=== PATIENT | female | born 1955 | race Hispanic/Latino ===

== ENCOUNTER → 2016-10-15 | Outpatient (CLI) | payer BC ==
--- NOTE | 2016-10-16 15:42 | MAM ---
EXAM DESCRIPTION: MAMMO BREAST SCREENING BILATERAL CAD, images were reviewed with CAD technology, R2 computer-aided detection. CLINICAL HISTORY: [facility]. COMPARISON: 2013. FINDINGS: Routine views are obtained. Scattered glandular pattern with increased mammographic density and stable distribution. No dominant mass, architectural distortion or clustered microcalcification.. IMPRESSION: Benign exam. BIRAD CATEGORY: 2 BENIGN RECOMMENDATIONS: FOLLOW-UP: Routine screening mammogram in one year. According to the [employer], yearly mammograms are recommended starting at age 40 and continuing as long as a woman is in good health. Any breast change noted on a breast self-exam should be reported promptly to the patient's healthcare provider. Breast MRI is recommended for women with an approximately 20-25% or greater lifetime risk of breast cancer, including women with a strong family history of breast or ovarian cancer and women who have been treated for Hodgkin's disease. Electronically signed by: Argenis Adams 10/16/2016 15:40
== END | disposition home or self-care (01) ==
LOC: MAMMO 12:47
PROVIDERS: ATTEND Family Medicine
DX: Z12.31 Encounter for screening mammogram for malignant neoplasm of breast (principal)

== ENCOUNTER → 2017-06-08 | Outpatient (CLI) | payer BC | END | disposition home or self-care (01) | LOC: GMAB 19:26 | PROVIDERS: ATTEND Physician Assistant | DX: N39.0 Urinary tract infection, site not specified (principal) ==

== ENCOUNTER → 2018-01-07 | Outpatient (CLI) | payer BC, OTHER ==
--- NOTE | 2018-01-11 14:47 | MAM ---
EXAM DESCRIPTION: 3D Screening BILATERAL : Digital Mammography. CLINICAL HISTORY: 62 years Female SCREENING . No complaints. Sister with breast cancer. Postmenopausal. No HRT. COMPARISON: 2-D digital screening bilateral study 10/15/2016.. Report from prior examination also reviewed. TECHNIQUE: Bilateral CC and MLO projection full-field images, 3-D tomosynthesis digital mammographic technique. Also bilateral synthesized CC/ MLO full-field images. CAD not utilized. FINDINGS: The breast parenchymal density pattern is: Scattered areas of fibroglandular density. No skin thickening or nipple retraction bilateral axillary lymph nodes. Bilateral solitary microcalcifications. No focal, stellate mass or density, focal asymmetry , and no suspicious microcalcifications bilaterally. Stable mammograms compared to prior study, taking into account differences in mammographic technique IMPRESSION: BI-RADS CATEGORY: 2 - BENIGN FINDINGS. FOLLOW UP: Routine digital bilateral screening, one year interval from January 2018. Written communication explaining the IMPRESSION and follow-up, will be mailed to the patient and referring health care provider. According to the [employer], yearly mammograms are recommended starting at age 40 and continuing as long as a woman is in good health. Any breast change noted on a breast self-exam should be reported promptly to the patient's healthcare provider. Breast MRI is recommended for women with an approximately 20-25% or greater lifetime risk of breast cancer, including women with a strong family history of breast or ovarian cancer and women who have been treated for Hodgkin's disease. A negative mammographic report should not delay tissue diagnosis in patients with significant clinical history or physical findings. Extremely dense breast tissue limits the sensitivity of digital mammography. Electronically signed by: Sean Tafoya MD 01/11/2018 2:45 PM CDT
== END ==
LOC: MAMMO 12:57
PROVIDERS: ATTEND Family Medicine
DX: Z12.31 Encounter for screening mammogram for malignant neoplasm of breast (principal)

== ENCOUNTER → 2018-08-26 | Outpatient (CLI) | payer OTHER | LOC: GMAE 15:38 | PROVIDERS: ATTEND Family Medicine | DX: R41.9 Unspecified symptoms and signs involving cognitive functions and awareness (principal); R41.81 Age-related cognitive decline ==

== ENCOUNTER → 2018-09-14 | Outpatient (CLI) | payer OTHER ==
--- NOTE | 2018-09-14 14:18 | CT ---
EXAM DESCRIPTION: Head CLINICAL HISTORY: 91252 /R41.9 memory loss COMPARISON: None available TECHNIQUE: Noncontrast head CT was performed with routine protocol. FINDINGS: Normal rivera-white matter differentiation. Ventricles and sulci are normal for age. No high density hemorrhage, focal edema or shift of the midline. No sulcal effacement. Normal orbital contents. Basilar cisterns appear clear. Intact calvarium with no fracture or lytic lesion. Normal aeration of tympanic cavities and mastoid air cells. No fluid levels in the paranasal sinuses. Skull base appears intact. Symmetrical internal auditory canals. IMPRESSION: No acute intracranial pathologic process. This exam was performed according to our departmental dose-optimization program, which includes automated exposure control, adjustment of the mA and/or kV according to patient size and/or use of iterative reconstruction technique. Total DLP equals 752.48 mGycm. Electronically signed by: Marcus Avendaño MD 09/14/2018 2:17 PM [facility]
== END ==
LOC: CT 13:24
PROVIDERS: ATTEND Family Medicine
DX: R41.81 Age-related cognitive decline (principal); R41.9 Unspecified symptoms and signs involving cognitive functions and awareness

== ENCOUNTER → 2018-12-21 | Outpatient (CLI) | payer OTHER | LOC: GMAE 10:33 | PROVIDERS: ATTEND Family Medicine | DX: E53.8 Deficiency of other specified B group vitamins (principal) ==

== ENCOUNTER 2018-12-24 21:20 | Emergency (ER) | payer OTHER ==
[2018-12-24] MEDS ORDERED: ALUMINUM & MAGNESIUM HYDROXIDE 30 ML UD PO ONE (21:43)
[2018-12-24] MEDS ORDERED: ONDANSETRON ODT 8 MG TAB SL ONE (21:43)
[2018-12-24] MEDS ORDERED: SIMETHICONE 80 MG TAB PO ONE (23:35)
--- NOTE | 2018-12-25 00:30 | ED.PDOC ---
History of Present Illness - General Chief Complaint: Abdominal Pain Stated Complaint: abd pain, N/V/D Time Seen by Provider: 12/24/18 21:21 Source: patient, family Exam Limitations: clinical condition - History of Present Illness Initial Comments: The patient is a [id number] presenting to the emergency room secondary to upper abdominal cramping along with some belching and nausea and vomiting for the last 24 hours. It has been intermittent. No fever. No real point pain. No blood and no bile. She has been having bowel movements. No severe pain. She did recently start a new medication for memory loss. No syncope or near syncope. No chest pain. Timing/Duration: 24 hours Severity: moderate Improving Factors: nothing Worsening Factors: nothing Associated Symptoms: loss of appetite, malaise, nausea/vomiting Home Medications: Ambulatory Orders Famotidine [Pepcid Tab] 20 mg PO BID #60 tab 12/25/18 Ondansetron [Ondansetron Odt] 4 mg PO Q8HR PRN #10 tab 12/25/18 Sucralfate Tab [Carafate Tab] 1 gm PO QID #120 tab 12/25/18 Review of Systems - Review of Systems Constitutional: States: malaise EENTM: States: no symptoms reported Respiratory: States: no symptoms reported Cardiology: States: no symptoms reported Gastrointestinal/Abdominal: States: abdominal pain - mild, nausea, vomiting Genitourinary: States: no symptoms reported Musculoskeletal: States: no symptoms reported Skin: States: no symptoms reported Neurological: States: no symptoms reported Endocrine: States: no symptoms reported All other Systems: No Change from Baseline Physical Exam - Physical Exam General Appearance: Alert, Comfortable, No apparent distress Eye Exam: bilateral normal Ears, Nose, Throat: hearing grossly normal, normal ENT inspection Neck: full range of motion, supple Respiratory: lungs clear, normal breath sounds, no respiratory distress, no accessory muscle use Cardiovascular/Chest: normal peripheral pulses, regular rate, rhythm, no edema Peripheral Pulses: radial,right: 2+, radial,left: 2+, dorsalis pedis,right: 2+, dorsalis pedis,left: 2+ Gastrointestinal/Abdominal: soft, other - mild epigastric discomfort palpation. 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 The patient has responded well to GI medications here. She will be written for Zofran for as needed use to control any nausea or vomiting. She is also going to be written for Pepcid and Carafate to be used for the next month. 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 She needs to maintain a bland diet. She needs to keep herself well hydrated. She needs to follow back up with her primary care doctor early next week. For now she is to hold the new medication that she started a few days ago as it may be irritating the problem. ER warnings were given. - Results/Orders Results/Orders: Laboratory Tests 12/24/18 23:37 Urine Color Yellow Urine Appearance Clear Urine pH 7.5 Ur Specific [place] 1.015 Urine Protein Negative Urine Glucose (UA) Negative Urine Ketones Negative Urine Blood Small H Urine Nitrite Negative Urine Bilirubin Negative Urine Urobilinogen 0.2 Ur Leukocyte Esterase Trace H Urine RBC 3-5 H Urine WBC 1-3 Ur Epithelial Cells 0 Urine Bacteria Rare acute abdominal series shows a moderate amount of stool and a mildly dilated stomach. No free air. No obvious obstruction. Departure - Departure Clinical Impression: Gastritis Qualifiers: Gastritis type: unspecified gastritis Chronicity: acute Gastritis bleeding: without bleeding Qualified Code(s): K29.00 - Acute gastritis without bleeding Disposition: Discharge to Home or Self Care Condition: Fair Departure Forms: ED Discharge - Pt. Copy, Patient Portal Self Enrollment Instructions: Gastritis (DC) Diet: bland diet Activity: increase activity as tolerated Referrals: KHADRA AMOR MD [Primary Care Provider] - 1-2 Weeks Prescriptions: Ondansetron [Ondansetron Odt] 4 mg PO Q8HR PRN #10 tab PRN Reason: Nausea/Vomiting Famotidine [Pepcid Tab] 20 mg PO BID #60 tab Sucralfate Tab [Carafate Tab] 1 gm PO QID #120 tab Home Medications: Ambulatory Orders Famotidine [Pepcid Tab] 20 mg PO BID #60 tab 12/25/18 Ondansetron [Ondansetron Odt] 4 mg PO Q8HR PRN #10 tab 12/25/18 Sucralfate Tab [Carafate Tab] 1 gm PO QID #120 tab 12/25/18 Additional Instructions: the patient is a 63-year-old female presenting to emergency room secondary to what appears to be a gastritis with mild nausea and vomiting. The patient has responded well to GI medications here. She will be written for Zofran for as needed use to control any nausea or vomiting. She is also going to be written for Pepcid and Carafate to be used for the next month. 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 She needs to maintain a bland diet. She needs to keep herself well hydrated. She needs to follow back up with her primary care doctor early next week. For now she is to hold the new medication that she started a few days ago as it may be irritating the problem. ER warnings were given.
[2018-12-25 01:21] VITALS: BP 155/75; TEMP 97.9; O2SAT 98
== END 2018-12-25 01:20 | disposition home or self-care (01) ==
LOC: ER 21:20
DX: K29.00 Acute gastritis without bleeding (principal)

== ENCOUNTER → 2020-08-17 | Outpatient (CLI) | payer MEDICARE | LOC: GMAE 10:41 | PROVIDERS: ATTEND Family Medicine | DX: Z79.899 Other long term (current) drug therapy (principal); E78.2 Mixed hyperlipidemia ==

== ENCOUNTER → 2020-08-24 | Outpatient (CLI) | payer MEDICARE | LOC: GMAE 10:56 | PROVIDERS: ATTEND Family Medicine | DX: R41.9 Unspecified symptoms and signs involving cognitive functions and awareness (principal) ==

== ENCOUNTER → 2020-10-29 | Outpatient (CLI) | payer MEDICARE ==
--- NOTE | 2020-10-29 16:38 | US ---
PROVIDED CLINICAL HISTORY/REASON FOR EXAM: ABD PAIN COMPARISON STUDY: None available. TECHNIQUE: Grayscale and limited doppler examination of the abdomen was obtained. FINDINGS: Pancreas: Obscured by bowel gas. Liver: Parenchymal morphology is unremarkable. No intrahepatic masses are identified. No significant intrahepatic biliary system dilatation. Right hepatic lobe cyst measuring 1.6 cm. CBD: Measures 6 mm. Within normal limits for age. Gallbladder: Normal with no stones or wall thickening. Kidneys: Both are normal in size and shape. The right kidney measures 10.0 x 3.9 x 4.9 cm. The left kidney measures 9.4 x 5.1 x 5.1cm. No suspicious masses are seen. No hydronephrosis noted. Spleen: Normal sonographic appearance. The spleen measures 9.9 cm in length. Retroperitoneal structures: IVC is unremarkable in appearance. Aorta is without evidence of aneurysm formation. IMPRESSION: Unremarkable abdominal ultrasound. Electronically signed by: Abdulkadir Joshi MD 10/29/2020 4:37 PM DIRECTOR [employer]
== END ==
LOC: LAB.O 15:59
PROVIDERS: ATTEND Nurse Practitioner Acute Care
DX: R10.84 Generalized abdominal pain (principal)

== ENCOUNTER 2020-10-30 10:12 | Emergency (ER) | payer MEDICARE ==
[2020-10-30] MEDS ORDERED: SODIUM CHLORIDE 0.9% (FLUSH) 10 ML SYG IV PRN (10:34)
[2020-10-30] MEDS ORDERED: KETOROLAC TROMETHAMINE INJ 30 MG/ML VIAL IV ONE (10:34)
[2020-10-30] MEDS ORDERED: SODIUM CHLORIDE 0.9% 1000ML 1,000 ML IVS PRN (10:34)
--- NOTE | 2020-10-30 11:14 | ED.PDOC ---
History of Present Illness - General Chief Complaint: Abdominal Pain Stated Complaint: lower abdominal pain Time Seen by Provider: 10/30/20 10:33 Information Source: patient Exam Limitations: no limitations - History of Present Illness Abdominal Pain Onset Location: RLQ, LLQ Pain Radiation: no radiation Quality: moderate - 2 months Improving Factors: nothing Worsening Factors: nothing Associated Symptoms: fatigue, other - states vomited one time last week . Review of Systems - Review of Systems Constitutional: Denies: chills, fever EENTM: Denies: blurred vision, tearing Respiratory: Denies: cough, stridor Cardiology: Denies: chest pain, syncope Gastrointestinal/Abdominal: States: abdominal pain. Denies: nausea Genitourinary: Denies: discharge, hematuria Musculoskeletal: Denies: gout, muscle pain Skin: Denies: change in color, dryness, lesions Neurological: Denies: depressed, emotional problems, numbness, paresthesia, pre- existing deficit Endocrine: Denies: flushing, intolerance to cold, intolerance to heat Hematologic/Lymphatic: Denies: anemia, easy bleeding, easy bruising Past Medical History (General) - Patient Medical History Hx Seizures: No Hx Stroke: No Hx Dementia: Yes Hx Asthma: No Hx of COPD: No Hx Cardiac Disorders: No Hx Congestive Heart Failure: No Hx Pacemaker: No Hx Hypertension: No Hx Thyroid Disease: No Hx Diabetes: No Hx Gastroesophageal Reflux: No Hx Renal Disease: No Hx Cancer: No Hx of HIV: No Hx Hepatitis C: No Hx MRSA: No - Vaccination History Hx Tetanus, Diphtheria Vaccination: No Hx Influenza Vaccination: No Hx Pneumococcal Vaccination: Yes - Social History Hx Tobacco Use: No Hx Alcohol Use: No Hx Substance Use: No Hx Substance Use Treatment: No Hx Depression: No Hx Physical Abuse: No Hx Emotional Abuse: No Hx Suspected Abuse: No Family Medical History - Family History Mother Family History: Unknown Physical Exam - Physical Exam General Appearance: Alert Eyes, Ears, Nose, Throat Exam: normal ENT inspection, TMs normal Neck: non-tender, full range of motion Respiratory: chest non-tender, lungs clear, normal breath sounds Cardiovascular/Chest: normal peripheral pulses, regular rate, rhythm Gastrointestinal/Abdominal: soft, tenderness Back Exam: normal inspection, no CVA tenderness Extremity: normal range of motion Progress - Progress Progress: This is a 65-year-old female with abdominal pain for last [address] of the abdomen does not show any acute pathology. 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 Patient and verbalized understanding to return precautions and follow-up instructions 10/30/20 11:49 EXAM DESCRIPTION: Abdoment/Pelvis w/o Contrast CLINICAL HISTORY: 65 years Female, abd pain COMPARISON: Abdominal sonography dated October 2020 TECHNIQUE: Transaxial images were obtained without intravenous or oral contrast media. Sagittal and coronal reconstruction was performed.This exam was performed according to our departmental dose-optimization program, which includes automated exposure control, adjustment of the mA and/or kV according to patient size and/or use of iterative reconstruction technique. FINDINGS: Minimal atelectasis is observed in the lung bases. A cyst is observed in the dome of the right lobe the liver measuring 1.42 cm in diameter. There is also a cyst posteriorly measuring 8.5 mm. The gallbladder is normal in appearance. No biliary ductal dilatation is observed. The spleen is normal in appearance. No adrenal masses are detected. The pancreas is normal in appearance. Imaging of the kidneys reveals no evidence of hydronephrosis mass cyst or calcification. Calcific atherosclerotic changes observed in the abdominal aorta without evidence of aneurysmal dilatation. The patient is post hysterectomy. No free fluid is observed. No inguinal region abnormality is detected. Degenerative changes are observed in the lower lumbar spine. IMPRESSION: 1. Small simple cysts are observed in the right lobe the liver. 2. Hysterectomy. Electronically signed by: Moisés Castro MD 10/30/2020 11:27 AM C 10/30/20 12:04 10/30/20 12:38 Departure - Departure Clinical Impression: Abdominal pain Disposition: Discharge to Home or Self Care Condition: Fair Departure Forms: ED Discharge - Pt. Copy, Patient Portal Self Enrollment Instructions: DI for Abdominal Pain-Adult, Severe Abdominal Pain, Adult (DC), Abdominal Pain, Adult ED Referrals: KHADRA AMOR MD [Primary Care Provider] - 1-2 Weeks AMI HOWARD MD [Physicians] - 1-2 Weeks Prescriptions: Acetaminophen [Tylenol] 650 mg PO Q8HR PRN 7 Days #30 cap NS PRN Reason: Pain -- Moderate Home Medications: Ambulatory Orders Famotidine [Pepcid Tab] 20 mg PO BID #60 tab 12/25/18 Ondansetron [Ondansetron Odt] 4 mg PO Q8HR PRN #10 tab 12/25/18 Sucralfate Tab [Carafate Tab] 1 gm PO QID #120 tab 12/25/18 Acetaminophen [Tylenol] 650 mg PO Q8HR PRN 7 Days #30 cap NS 10/30/20
--- NOTE | 2020-10-30 11:29 | CT ---
EXAM DESCRIPTION: Abdoment/Pelvis w/o Contrast CLINICAL HISTORY: 65 years Female, abd pain COMPARISON: Abdominal sonography dated October 2020 TECHNIQUE: Transaxial images were obtained without intravenous or oral contrast media. Sagittal and coronal reconstruction was performed.This exam was performed according to our departmental dose-optimization program, which includes automated exposure control, adjustment of the mA and/or kV according to patient size and/or use of iterative reconstruction technique. FINDINGS: Minimal atelectasis is observed in the lung bases. A cyst is observed in the dome of the right lobe the liver measuring 1.42 cm in diameter. There is also a cyst posteriorly measuring 8.5 mm. The gallbladder is normal in appearance. No biliary ductal dilatation is observed. The spleen is normal in appearance. No adrenal masses are detected. The pancreas is normal in appearance. Imaging of the kidneys reveals no evidence of hydronephrosis mass cyst or calcification. Calcific atherosclerotic changes observed in the abdominal aorta without evidence of aneurysmal dilatation. The patient is post hysterectomy. No free fluid is observed. No inguinal region abnormality is detected. Degenerative changes are observed in the lower lumbar spine. IMPRESSION: 1. Small simple cysts are observed in the right lobe the liver. 2. Hysterectomy. Electronically signed by: Moisés Castro MD 10/30/2020 11:27 AM DOCTOR OF NURSING PRACTICE
[2020-10-30 12:52] VITALS: BP 131/75; TEMP 97.2; O2SAT 96
== END 2020-10-30 12:29 | disposition home or self-care (01) ==
LOC: ER 10:12
DX: R10.30 Lower abdominal pain, unspecified (principal); R53.83 Other fatigue; F03.90 Unspecified dementia, unspecified severity, without behavioral disturbance, psychotic disturbance, mood disturbance, and anxiety
CPT/HCPCS: 36415; 74176; 80048; 80076; 83690; 85025; 93005; A4216; J1885; J7030